=== PATIENT | male | born 1925 | race Caucasian/White ===

== ENCOUNTER 2017-03-31 10:03 | Inpatient (IN) ==
[2017-03-31] MEDS ORDERED: IPRATROPIUM/ALBUTEROL 3 ML AMPUL.NEB NEB ONE ×2 (10:28)
--- NOTE | 2017-03-31 10:48 | XRay Report ---
CLINICAL INFORMATION: Dyspnea COMPARISON: None. FINDINGS: The heart is minimally enlarged. Mediastinum and pulmonary vessels are normal. Small bibasilar infiltrates noted more prominent on the left IMPRESSION: Small right basilar infiltrates - more prominent in the left. Consider aspiration Interpreted and Authenticated by: Zak Arreola 03/31/17
[2017-03-31 11:10] LABS: Basophils # (Auto) 0 K/mcL (0.0-0.3); Basophils % (Auto) 0.4 % (0.0-2.0); Eosinophils # (Auto) 0.4 K/mcL (0.0-0.7); Eosinophils % (Auto) 4.9 % (0.0-7.0); Granulocytes % (Auto) 74.7 % (38.0-78.0); Lymphocytes # (Auto) 1.1 K/mcL (1.5-4.8); Lymphocytes % (Auto) 12.2 % (15.5-49.0); Mean Cell Volume 84.9 fL (80.0-100.0); Mean Corpuscular HGB Conc 33.6 g/dL (31.0-36.0); Mean Corpuscular Hemoglobin 28.5 pg (26.0-34.0); Monocytes # (Auto) 0.7 K/mcL (0.1-0.9); Monocytes % (Auto) 7.8 % (1.0-12.0); Platelet Count 256 K/mcL (140-440); RBC 4.16 M/mcL (4.50-5.90); Red Cell Distribution Width 14.8 % (11.5-14.5)
[2017-03-31] MEDS ORDERED: AZITHROMYCIN 500 MG in DEXTROSE 5% IN WATER 250 ML IV ONE (11:10)
[2017-03-31 11:33] LABS: ALT/SGPT 9 U/l (0-40); Albumin 3.9 gm/dL (3.2-5.2); Albumin/Globulin Ratio 1.2 (1.0-2.3); Alkaline Phosphatase 67 U/L (39-117); Blood Urea Nitrogen 17 mg/dl (8-23)
--- NOTE | 2017-03-31 11:49 | Emergency Department Note ---
SOB HPI - General Chief Complaint: Shortness of Breath/Dyspnea Stated Complaint: Sob/cough Time Seen by Provider: 03/31/17 10:17 Source: patient Mode of arrival: ambulatory Limitations: no limitations - History of Present Illness Old male presents with shortness of breath, cough, and wheezing for the last week. Much worse the last few days. States cough is nonproductive. States he has had a fever of up to 103 at home. He is afebrile here today. He believes his last fever was last night. No nausea or vomiting. No diarrhea. He does have a little bit of generalized weakness and he states he just does not feel well. His shortness of breath is worse with exertion even just getting up and walking around. Denies any pedal edema. States he just feels like he has a lot of stuff in his lungs that he cannot get up and therefore cannot breathe. No ear pain or sore throat. No runny nose or nasal congestion. No sinus pressure congestion. Slightly decreased appetite but is still eating and drinking well. Associated symptoms: Denies: lower extremity pain, diaphoresis, nausea/vomiting , syncope, abdominal pain - Related Data Home Medications Medication Instructions Recorded Confirmed Fluticasone Propionate [Flovent 250 mcg IH DAILY 09/26/15 01/12/16 Diskus] Ginseng [Panax Ginseng] 100 mg PO DAILY 09/26/15 01/12/16 Ipratropium/Albuterol Sulfate 1 puff INH DAILY 09/26/15 01/12/16 [Combivent] Ipratropium/Albuterol [Duoneb] 3 ml NEB BID 09/26/15 01/12/16 Omeprazole [PriLOSEC] 20 mg PO ACB 09/26/15 01/12/16 Saw [place] 80 mg PO DAILY 09/26/15 01/12/16 Tamsulosin [Flomax] 0.4 mg PO HS 09/26/15 01/12/16 metFORMIN [Glucophage] 500 mg PO BIDCC 09/26/15 01/12/16 Aspirin 08/07/16 Allergies Allergy/AdvReac Type Severity Reaction Status Date / Time Sulfa (Sulfonamide Allergy Severe Verified 08/07/16 12:33 Antibiotics) [SULFA (SULFONAMIDE ANTIBIOTICS)] Review of Systems All systems ED: reviewed and negative except as stated. Past Medical History - Past Medical History [facility] Narrative: Medical History (Last Updated 11/26/16 @ 14:07 by Categorical SD) Benign paroxysmal positional vertigo (Acute) Ecchymosis (Acute) Viral URI with cough (Acute) Medical history: Reports: arthritis, COPD, diabetes, other (benign positional vertigo) Surgical history ED: Reports: non-contributory - Social History smoking status: Former smoker Alcohol use: Reports: None Drug use: Reports: none Physical Exam - General Limitations: no limitations General appearance: alert, in no apparent distress - Head Head exam: atraumatic, normocephalic, normal inspection - Eye Eye exam: Present: normal appearance. Absent: conjunctival injection - ENT ENT exam: normal exam, normal oropharynx, mucous membranes moist, TM's normal bilaterally, normal external ear exam - Neck Neck exam: Present: normal inspection, trachea midline. Absent: tenderness, lymphadenopathy - Chest Chest inspection: Present: normal inspection, symmetric chest wall rise - Respiratory Respiratory exam: Present: wheezes (Lung sounds diminished in the bases bilaterally with expiratory wheezing bilaterally.), other (Patient does have labored breathing with any exertion, even walking around the room. Oxygen saturations while sitting and resting are 88-89% on room air. ). Absent: respiratory distress, accessory muscle use - Cardiovascular Cardiovascular exam: Present: regular rate, normal rhythm, normal heart sounds - Abdominal Exam Abdominal exam: Present: soft, normal bowel sounds. Absent: distention, tenderness - Extremities Exam Extremities exam: Present: normal inspection, normal capillary refill. Absent: pedal edema - Neurological Exam Neurological exam: Present: alert, oriented X3, normal gait - Psychiatric Psychiatric exam: Present: normal affect, normal mood - Skin Skin exam: Present: warm, dry, intact, normal color. Absent: rash, cyanosis, diaphoresis, erythema Course Course Narrative: This patient get up and walk around a little bit in the room and his oxygen saturations on room air dropped to 82-84% with very little exertion. He states he is a little short of breath but not bad. He has been much more short of breath at home. Patient does have bilateral infiltrates. He is hypoxic on room air and with exertion. I did speak with Dr. Velasquez the hospitalist who agrees to admit and care for patient. He did receive 500 mg of IV Zithromax. Lactic acid was 1.2. Blood culture pending. please see lab results. Vital Signs Temperature 97.7 F 03/31/17 10:04 Pulse Rate 65 03/31/17 10:04 Respiratory Rate 20 03/31/17 10:04 Blood Pressure 133/64 03/31/17 10:04 Pulse Oximetry (%) 93 03/31/17 10:04 Temperature 97.7 F 03/31/17 10:04 Pulse Rate 59 L 03/31/17 11:31 Respiratory Rate 12 03/31/17 11:31 Blood Pressure 121/68 03/31/17 11:31 Pulse Oximetry (%) 91 03/31/17 11:31 Shortness of Breath/Dyspnea - Lab Data Result diagrams: 03/31/17 10:40 03/31/17 10:40 Lab Results 03/31/17 03/31/17 03/31/17 Range/Units 10:40 10:40 10:40 WBC 9.1 (4.5-11.0) K/mcL RBC 4.16 L (4.50-5.90) M/mcL Hgb 11.9 L (13.5-16.5) g/dL Hct 35.3 L (41.0-55.0) % MCV 84.9 (80.0-100.0) fL MCH 28.5 (26.0-34.0) pg MCHC 33.6 (31.0-36.0) g/dL RDW 14.8 H (11.5-14.5) % Plt Count 256 (140-440) K/mcL MPV 7.5 (7.4-10.4) fL Gran % 74.7 (38.0-78.0) % Lymph % (Auto) 12.2 L (15.5-49.0) % [place] % (Auto) 7.8 (1.0-12.0) % Eos % (Auto) 4.9 (0.0-7.0) % Baso % (Auto) 0.4 (0.0-2.0) % Gran # 6.8 (1.8-8.0) K/mcL Lymph # (Auto) 1.1 L (1.5-4.8) K/mcL [place] # (Auto) 0.7 (0.1-0.9) K/mcL Eos # (Auto) 0.4 (0.0-0.7) K/mcL Baso # (Auto) 0 (0.0-0.3) K/mcL D-Dimer 0.50 H (0.00-0.40) ug/ml VBG Lactic Acid (0.5-2.2) mmol/L Sodium 138 (133-145) mmol/L Potassium 4.4 (3.3-5.1) mmol/L Chloride 102 (96-108) mmol/L Carbon Dioxide 20 L (22-30) mmol/L Anion Gap 16.0 (8-16) BUN 17 (8-23) mg/dl Creatinine 1.2 (0.7-1.2) mg/dl GFR Calculation 53 Glucose 154 H (70-105) mg/dL Calcium 9.0 (8.6-10.4) mg/dl Total Bilirubin 0.4 (0.0-1.0) mg/dL AST 8 (0-37) U/l ALT 9 (0-40) U/l Alkaline Phosphatase 67 (39-117) U/L Troponin T (0-0.03) ng/ml Total Protein 7.1 (5.9-8.4) gm/dL Albumin 3.9 (3.2-5.2) gm/dL Globulin 3.2 (2.2-3.7) gm/dL Albumin/Globulin Ratio 1.2 (1.0-2.3) 03/31/17 03/31/17 Range/Units 10:40 11:15 WBC (4.5-11.0) K/mcL RBC (4.50-5.90) M/mcL Hgb (13.5-16.5) g/dL Hct (41.0-55.0) % MCV (80.0-100.0) fL MCH (26.0-34.0) pg MCHC (31.0-36.0) g/dL RDW (11.5-14.5) % Plt Count (140-440) K/mcL MPV (7.4-10.4) fL Gran % (38.0-78.0) % Lymph % (Auto) (15.5-49.0) % [place] % (Auto) (1.0-12.0) % Eos % (Auto) (0.0-7.0) % Baso % (Auto) (0.0-2.0) % Gran # (1.8-8.0) K/mcL Lymph # (Auto) (1.5-4.8) K/mcL [place] # (Auto) (0.1-0.9) K/mcL Eos # (Auto) (0.0-0.7) K/mcL Baso # (Auto) (0.0-0.3) K/mcL D-Dimer (0.00-0.40) ug/ml VBG Lactic Acid 1.2 (0.5-2.2) mmol/L Sodium (133-145) mmol/L Potassium (3.3-5.1) mmol/L Chloride (96-108) mmol/L Carbon Dioxide (22-30) mmol/L Anion Gap (8-16) BUN (8-23) mg/dl Creatinine (0.7-1.2) mg/dl GFR Calculation Glucose (70-105) mg/dL Calcium (8.6-10.4) mg/dl Total Bilirubin (0.0-1.0) mg/dL AST (0-37) U/l ALT (0-40) U/l Alkaline Phosphatase (39-117) U/L Troponin T < 0.01 (0-0.03) ng/ml Total Protein (5.9-8.4) gm/dL Albumin (3.2-5.2) gm/dL Globulin (2.2-3.7) gm/dL Albumin/Globulin Ratio (1.0-2.3) Disposition Pt seen by CORRECTIONAL MAINTENANCE TECHNICIAN/PA only: Yes Clinical Impression: Pneumonia Disposition: Xfer As Inpt ([facility]) Condition: Fair Referrals: Yahaira Oconnor MD [Primary Care Provider] - Time of Disposition: 12:19
--- NOTE | 2017-03-31 13:08 | Emergency Department Note ---
ED Note Addendum Note Addendum: I have exaqmioned the patient and reviewed xrays and lab and agree with dx and rx and admission
[2017-03-31] MEDS ORDERED: NALOXONE HCL 0.4 MG/ML VIAL IV PRN (14:31)
[2017-03-31] MEDS ORDERED: ONDANSETRON 4 MG/2 ML VIAL IV PRN (14:31)
[2017-03-31] MEDS ORDERED: CALCIUM CARBONATE 500 MG TAB.CHEW CHEWED PRN (14:31)
[2017-03-31] MEDS ORDERED: DOCUSATE SODIUM 100 MG CAPSULE PO PRN (14:31)
[2017-03-31] MEDS ORDERED: ALBUTEROL SULFATE 2.5 MG/3 ML NEBULIZER NEB PRN (14:31)
[2017-03-31] MEDS ORDERED: DEXTROSE 31 GM ORAL.SUSP PO PRN (14:31)
[2017-03-31] MEDS ORDERED: DEXTROSE 50% 50 ML VIAL IV PRN (14:31)
[2017-03-31] MEDS ORDERED: MAGNESIUM HYDROXIDE 30 ML ORAL.SUSP PO PRN (14:31)
[2017-03-31] MEDS ORDERED: ACETAMINOPHEN 325 MG TABLET PO PRN (14:31)
[2017-03-31] MEDS: IPRATROPIUM/ALBUTEROL 3 ML AMPUL.NEB NEB SCH ×2 (14:43→18:45)
--- NOTE | 2017-03-31 15:00 | Internal Med History&Physical ---
Medical - H&P: HPI Patient information: Note initiated : 03/31/17 at 2:57 pm Patient: Zak Perez 89 y/o M admitted on 03/31/17 for SOB/Cough. History of present illness: Mr. Perez is a 89 year old who lives with his daughter. He generally is pretty functional and was in his normal state of health until about 8 days ago, when he developed fever as high as 103, cough and increased shortness of breath, wheezing, and generalized weakness. He has nebulized medication use at home as well as inhalers, so was trying to use those. He has had some minor chills. He is also noticing not only dyspnea with exertion but also some orthopnea, runny nose, nonproductive cough. He has had some episodes of chest pain mainly with coughing, across his lower chest. He is also had migraines the last couple of days, which are generally quite infrequent for him. He otherwise denies new eye or ear symptoms, sinus symptoms, sore throat. He denies swollen glands, other chest pain or palpitations. He denies abdominal pain, nausea or vomiting, diarrhea or constipation, or change in his chronic BPH symptoms. ER evaluation suggests bilateral lower lobe pneumonia, with room air O2 saturations as low as 84%. He did drive himself here today rather than bother his daughter. Past medical history: COPD [place] type 2 diabetes BPH [place] benign positional vertigo Migraines GERD Current medications: Metformin 500 mg twice daily Zinc 50 mg twice daily Flomax 0.4 mg nightly Saw palmetto 80 mg daily Omeprazole 40 mg twice daily Duo nebs twice daily as needed Combivent 1 puff 4 times daily as needed Ginseng 2 tabs daily Aspirin 81 mg daily Allergies: Sulfa Family history: He reports his mother of old age. Father possibly with asthma. Siblings have had some type of GI cancer and diabetes. Social history: Smokes cigarettes around age [age]. He then switched to cigars and smokes cigars for about 40 years, but quit more than 10 years ago. He drinks 2 alcohol-containing drinks per day, either wine or whiskey. He does not use drugs. He lives with his daughter in [place]. Medical - H&P: Meds Home Medications Medication Instructions Recorded Confirmed Type Ginseng [Panax Ginseng] 2 tab PO DAILY 09/26/15 03/31/17 History Ipratropium/Albuterol Sulfate 1 puff INH PRN PRN 09/26/15 03/31/17 History [Combivent] Saw [place] 80 mg PO DAILY 09/26/15 03/31/17 History Tamsulosin [Flomax] 0.4 mg PO HS 09/26/15 03/31/17 History metFORMIN [Glucophage] 500 mg PO BIDCC 09/26/15 03/31/17 History Aspirin 81 mg PO HS 08/07/16 03/31/17 History Omeprazole [Prilosec] 40 mg PO BID 03/31/17 03/31/17 History Zinc 50 mg PO BID 03/31/17 03/31/17 History Accu-Chek 1 each FS ACHS strip 04/03/17 Rx Acetaminophen [Tylenol] 650 mg PO Q6HP PRN tablet 04/03/17 Rx Albuterol Sulfate [Ventolin] 2.5 mg NEB Q2HP PRN #30 04/03/17 Rx Amoxicillin/Potassium Clav 875 mg PO Q12H #10 tablet 04/03/17 Rx [Augmentin] Ipratropium/Albuterol [Duoneb] 3 ml NEB TID #30 04/03/17 Rx predniSONE [Prednisone] 40 mg PO QAMCC #5 tablet 04/03/17 Rx Allergies Allergy/AdvReac Type Severity Reaction Status Date / Time Sulfa (Sulfonamide Allergy Severe Verified 03/31/17 14:27 Antibiotics) [SULFA (SULFONAMIDE ANTIBIOTICS)] Medical - H&P: Exam - Constitutional Vitals: Temp Pulse Resp BP Pulse Ox 98 F 65 20 121/53 92 03/31/17 13:55 03/31/17 14:43 03/31/17 14:43 03/31/17 13:55 03/31/17 14:45 The patient is an elderly man, sitting on the side of his bed. He has a congested cough, but is not in severe distress at this time. Head is normocephalic, atraumatic. Eyes: PERRLA, EOMI, anicteric. Ears: TMs and canals are clear. Pharynx: Pharynx is clear. Teeth are in good repair. Mucosa appears normal. Neck: Is supple, without obvious lymphadenopathy, JVD, thyromegaly, bruits. Cardiac exam shows regular rate and rhythm with normal S1 and S2 without murmurs rubs or gallops Lungs: Breath sounds are very coarse throughout, with scattered rhonchi and wheezes, but no definite crackles. I do not believe he is using accessory muscles at this time. Abdomen is soft and nontender with no obvious masses. Bowel sounds are active. Extremities: Show no cyanosis, clubbing, edema. Neurologic exam: Patient is alert and oriented, calm and cooperative. Motor exam is grossly nonfocal. Medical - H&P: Reslt - Labs CBC & Chem 7: 04/03/17 04:54 04/03/17 04:54 Labs: D-dimer is elevated at 0.50 next Lactic acid is normal at 1.2 Troponin T is normal at less than 0.01 agraffe chest x-ray: Shows small basilar infiltrates, more prominent on the left. EKG shows normal sinus rhythm at a rate of about 60. No acute ischemic changes are noted. Next Chest x-ray shows small bibasilar infiltrates, more prominent on the left side. Consider aspiration. Medical - H&P: A/P (1) Type 2 diabetes mellitus Current visit: Yes Status: Acute (2) BPH (benign prostatic hyperplasia) Current visit: Yes Status: Acute (3) GERD (gastroesophageal reflux disease) Current visit: Yes Status: Acute (4) Pneumonia Current visit: Yes Status: Acute - Narrative A/P Narrative: #1. Pulmonary/infectious disease. Patient presents with signs and symptoms consistent with possible aspiration pneumonia, in addition to COPD exacerbation. He is not doing well with outpatient management, and is now admitted for more intensive care. -Cover with IV Zosyn -Blood and sputum cultures. -Manage fever with Tylenol -Oxygen, scheduled duo nebs, as needed albuterol nebs, pulmonary toilet. -Speech therapy evaluation regarding possible aspiration. -Replace Flovent with budesonide nebs. 2. Endocrine. Type 2 diabetes. Cover with sliding scale insulin, Accu-Cheks. Hold Metformin until we are sure he is not dehydrated. 3. . History of BPH. Continue Flomax. 4. GI. GERD. Continue omeprazole. 5. CODE STATUS: He says he does not have anything in writing, and it sounds like he would like to be a full code initially, but would not want long-term life support. He would like his daughter, Latonya Perez, to act as his POA. 6. DVT prophylaxis: Subcu heparin. This visit took approximately 55 minutes, to review the patient's case with the ER MD, interview and examine the patient, review his records and test results, and write orders. Medical - H&P: Qual - VTE Deep Vein Thrombosis/Pulmonary Embolism Present on Admission: No
[2017-03-31] MEDS: PIPERACILLIN SODIUM/TAZOBACTAM 3.375 GM in DEXTROSE 5% IN WATER 50 ML IV SCH ×2 (15:59→20:10)
[2017-03-31] MEDS: POTASSIUM CHLORIDE IV SCH (16:00)
[2017-03-31] MEDS: 0.9 % SODIUM CHLORIDE 10 ML SYRINGE IV SCH ×2 (16:00→20:10)
[2017-03-31] MEDS: SODIUM CHLORIDE 0.9% IV SCH (16:00)
[2017-03-31] MEDS: INSULIN LISPRO 1 UNIT/0.01 ML UNIT SQ SCH ×2 (16:33→20:10)
[2017-03-31] MEDS: HEPARIN 5,000 UNIT/ML VIAL SQ SCH (20:10)
[2017-04-01] MEDS: PIPERACILLIN SODIUM/TAZOBACTAM 3.375 GM in DEXTROSE 5% IN WATER 50 ML IV SCH ×4 (00:05→18:10)
--- NOTE | 2017-04-01 02:03 | Emergency Department Note ---
ED Note Addendum Note Addendum: PT EXAMINED WITH Jayy AND AGREE WITH TREATMENT AND DX. hOSPITALIST CONTACTED
[2017-04-01] MEDS: IPRATROPIUM/ALBUTEROL 3 ML AMPUL.NEB NEB SCH ×4 (03:12→19:39)
[2017-04-01] MEDS: SODIUM CHLORIDE 0.9% IV SCH ×3 (04:18→17:18)
[2017-04-01] MEDS: POTASSIUM CHLORIDE IV SCH ×3 (04:18→17:18)
[2017-04-01] MEDS: 0.9 % SODIUM CHLORIDE 10 ML SYRINGE IV SCH ×3 (05:10→21:19)
[2017-04-01 06:06] LABS: Basophils # (Auto) 0 K/mcL (0.0-0.3); Basophils % (Auto) 0.4 % (0.0-2.0); Eosinophils # (Auto) 0.5 K/mcL (0.0-0.7); Eosinophils % (Auto) 6.4 % (0.0-7.0); Granulocytes % (Auto) 66.1 % (38.0-78.0); Lymphocytes # (Auto) 1.4 K/mcL (1.5-4.8); Lymphocytes % (Auto) 19.7 % (15.5-49.0); Mean Cell Volume 85.3 fL (80.0-100.0); Mean Corpuscular HGB Conc 33.4 g/dL (31.0-36.0); Mean Corpuscular Hemoglobin 28.5 pg (26.0-34.0); Monocytes # (Auto) 0.5 K/mcL (0.1-0.9); Monocytes % (Auto) 7.4 % (1.0-12.0); Platelet Count 251 K/mcL (140-440); RBC 3.85 M/mcL (4.50-5.90)
[2017-04-01 06:22] LABS: Estimated Average Glucose(eAG) 140 mg/dL; Hemoglobin A1C 6.5 % HGB (4.0-6.0)
[2017-04-01 06:31] LABS: ALT/SGPT 8 U/l (0-40); Albumin 3.5 gm/dL (3.2-5.2); Albumin/Globulin Ratio 1.2 (1.0-2.3); Alkaline Phosphatase 63 U/L (39-117); Bilirubin,Direct < 0.2 mg/dL (0.0-0.3); Blood Urea Nitrogen 16 mg/dl (8-23); Gamma Glutamyl Transpeptidase 11 U/L (8-61); Magnesium 1.8 mg/dL (1.6-2.5); Uric Acid 4.6 mg/dL (2.5-8.0)
[2017-04-01] MEDS: INSULIN LISPRO 1 UNIT/0.01 ML UNIT SQ SCH ×4 (07:19→21:13)
[2017-04-01] MEDS: OMEPRAZOLE 20 MG CAPSULE PO SCH ×2 (07:19→17:08)
--- NOTE | 2017-04-01 08:00 | XRay Report ---
CLINICAL INFORMATION: Follow pneumonia COMPARISON: 03/31/2017 FINDINGS: The heart is minimally enlarged, but stable. Mediastinum and pulmonary vessels are normal. Small infiltrates in both medial bases show slight progression. No effusion IMPRESSION: Small bibasilar infiltrates - slight progression from yesterday. Interpreted and Authenticated by: Zak Arreola 04/01/17
[2017-04-01] MEDS: metFORMIN 500 MG TABLET PO SCH ×2 (08:23→17:08)
[2017-04-01] MEDS: HEPARIN 5,000 UNIT/ML VIAL SQ SCH ×2 (08:23→21:22)
--- NOTE | 2017-04-01 11:37 | Internal Med Progress Note ---
Medical - PN: Subj Patient information: Note initiated : 04/01/17 at 11:34 am Service Date, if different from initiated Date: [] Patient: Zak Perez a 89 y/o M admitted on 03/31/17 for SOB, Cough/Pneumonia. Chief Complaint: [] Interval history: Mr. Perez is a 89 year old who lives with his daughter. He generally is pretty functional and was in his normal state of health until about 8 days ago, when he developed fever as high as 103, cough and increased shortness of breath, wheezing, and generalized weakness. He has nebulized medication use at home as well as inhalers, so was trying to use those. He has had some minor chills. He is also noticing not only dyspnea with exertion but also some orthopnea, runny nose, nonproductive cough. He has had some episodes of chest pain mainly with coughing, across his lower chest. He is also had migraines the last couple of days, which are generally quite infrequent for him. He otherwise denies new eye or ear symptoms, sinus symptoms, sore throat. He denies swollen glands, other chest pain or palpitations. He denies abdominal pain, nausea or vomiting, diarrhea or constipation, or change in his chronic BPH symptoms. ER evaluation suggests bilateral lower lobe pneumonia, with room air O2 saturations as low as 84%. He did drive himself here today rather than bother his daughter. 04/01: Patient seen exained, no acute overnight events, the patients CXR today shows some progression of pna, but clinically the patient appears better. He feels much better and denies any acute complaints, he remains on 3 L oxygen via face mask. His bp is stable and glucose at goal I reviewed his Case with Speech therapy, who brought to my attention that there may be some possible stenosis/ stricture in the esophagus, the patient has h/o difficulty in swallowing d ry and solid foods for a while, notes they had tried an EGD in the past where they were unable to pass the scope below the upper esophagus. Will get a barium esophageogram today to see if there is any obvious / gross stricture. Pertinent ROS: Denies headache, dizziness Denies chest pain, palpitations Denies cough or shortness of breath (much better) Denies abdominal pain, nausea or vomiting. - Constitutional Vitals: Vital Signs Temp Pulse Resp BP Pulse Ox 97.5 F 62 20 137/69 96 04/01/17 11:10 04/01/17 11:10 04/01/17 11:10 04/01/17 11:10 04/01/17 11:10 Period Temp Pulse Resp BP Sys/Cohen Pulse Ox Last 24 Hr 97.5 F-98.2 F 60-83 12-22 117-162/53-77 88-96 Intake and Output 03/31/17 04/01/17 04/01/17 21:59 05:59 13:59 Intake Total 100 / 100 1994 240 / 240 Output Total 875 / 875 1700 / 1700 575 / 575 Balance -775 / -775 295 / 295 -335 / -335 Weight 178 lb Intake & Output: Intake & Output 03/31/17 04/01/17 04/01/17 21:59 05:59 13:59 Intake Total 100 / 100 1994 240 / 240 Output Total 875 / 875 1700 / 1700 575 / 575 Balance -775 / -775 295 / 295 -335 / -335 Weight 178 lb Intake: IV 100 / 100 1055 / 1055 Zosyn 3.375 gm In 100 / 100 50 / 50 Dextrose 5% in Water 50 ml @ 100 mls/hr IV Q6H JAZMYNE Rx#:[id number] Potassium Chloride 10 Meq 1005 / 1005 In Sodium Chloride 0.9% 1,000 ml @ 75 mls/hr IV . [id number] JAZMYNE Rx#:[id number] Oral 940 / 940 240 / 240 Output: Void Amount 875 / 875 1700 / 1700 575 / 575 Other: Meal Breakfast Percent of Meal Consumed 75% # Voids 1 1 Exam: Constitutional; Afebrile, cooperative, alert, not in distress. Eyes- No icterus, , No periorbital swelling Ears- Ext ear normal, hearing normal to conversation. Neck- Midline trachea, supple Respiratory system: Air Entry equal on both sides, No crackles or wheezing, no rhonchi. CVS- Rate rhythm regular, S1,S2 heard, no gallop, no rub. Abdomen- Soft nontender abdomen, no organomegaly, no tenderness, no guarding or rigidity, DIRECTOR OF ESTATE- AOOx3, moving all extremities, no gross focal deficit noted. Medical - PN: Obj Da - Labs CBC & Chem 7: 04/01/17 04:44 04/01/17 04:44 Labs: Abnormal Lab Results 04/01/17 04/01/17 04:44 04:44 RBC 3.85 L Hgb 11.0 L Hct 32.8 L RDW 15.0 H Lymph # (Auto) 1.4 L Glucose 117 H Hemoglobin A1c 6.5 H Meds: Medications Acetaminophen (Tylenol) 650 mg PO Q6HP PRN PRN Reason: PAIN/FEVER > 101 Albuterol Sulfate (Ventolin) 2.5 mg NEB Q2HP PRN PRN Reason: Shortness Of Breath Albuterol/Ipratropium (Duoneb) 3 ml NEB Q6HRT [facility] Last Admin: 04/01/17 07:12 Dose: 3 ml Aspirin (Aspirin) 81 mg PO HS [facility] Calcium Carbonate/Glycine (Tums) 1,000 mg CHEWED Q4HP PRN PRN Reason: Dyspepsia Dextrose (Dextrose 50%) 0 ml IV UD PRN PRN Reason: Hypoglycemia Diagnostic Test (Pha) (Accu-Chek) 1 each FS ACHS [facility] Last Admin: 04/01/17 11:13 Dose: 1 each Docusate Sodium (Colace) 100 mg PO BID PRN PRN Reason: Congestion Glucose (Insta-Glucose) 15 gm PO PRN PRN PRN Reason: Hypoglycemia Heparin Sodium (Porcine) (Heparin) 5,000 unit SQ Q12 [facility] Last Admin: 04/01/17 08:23 Dose: 5,000 unit Potassium Chloride 10 meq/ (Sodium Chloride) 1,005 mls @ 75 mls/hr IV .[id number] [facility] Last Admin: 04/01/17 07:19 Dose: 75 mls/hr Piperacillin Sod/Tazobactam (Sod 3.375 gm/ Dextrose) 50 mls @ 100 mls/hr IV Q6H [facility] Last Admin: 04/01/17 05:10 Dose: 100 mls/hr Insulin Human Lispro (Humalog) 0 unit SQ ACHS [facility] PRN Reason: Protocol Last Admin: 04/01/17 07:19 Dose: Not Given Magnesium Hydroxide (Milk Of Magnesia) 30 ml PO DAILYP PRN PRN Reason: Constipation Metformin HCl (Glucophage) 500 mg PO BIDCC [facility] Last Admin: 04/01/17 08:23 Dose: 500 mg Naloxone HCl (Narcan) 0.1 mg IV Q2MIN PRN PRN Reason: Opiate Reversal Omeprazole (Prilosec) 40 mg PO BIDAC [facility] Last Admin: 04/01/17 07:19 Dose: 40 mg Ondansetron HCl (Zofran) 4 mg IV Q6HP PRN PRN Reason: Nausea And Vomiting Sodium Chloride (Saline Flush) 10 ml IV Q8 [facility] Last Admin: 04/01/17 05:10 Dose: Not Given Tamsulosin HCl (Flomax) 0.4 mg PO [facility] Medical - PN: A/P - Time Spent With Patient Total time spent is greater than 50% in coordination of care (as documented) at patient's floor/unit and/or counseling patient: - Narrative A/P Narrative: A/P Narrative: #1. Pulmonary/infectious disease. Patient presents with signs and symptoms consistent with possible aspiration pneumonia, in addition to COPD exacerbation. -Cover with IV Zosyn -Blood and sputum cultures., results pending. -Manage fever with Tylenol -Oxygen, scheduled duo nebs, as needed albuterol nebs, pulmonary toilet. -Speech therapy evaluation regarding possible aspiration. esophageogram ordered -Replace Flovent with budesonide nebs. -prednisone 40mg daily x 5 days for copd 2. Endocrine. Type 2 diabetes. Cover with sliding scale insulin, Accu-Cheks. glucose seems to be at goal 3. . History of BPH. Continue Flomax. 4. GI. GERD. Continue omeprazole. 5. CODE STATUS: He says he does not have anything in writing, and it sounds like he would like to be a full code initially, but would not want long-term life support. He would like his daughter, Latonya Perez, to act as his POA. 6. DVT prophylaxis: Subcu heparin. Medical - PN: Qual - VTE Deep Vein Thrombosis/Pulmonary Embolism Present on Admission: No
[2017-04-01] MEDS: predniSONE 20 MG TABLET PO SCH (12:54)
[2017-04-01] MEDS: ASPIRIN 81 MG TAB.CHEW PO SCH (21:14)
[2017-04-01] MEDS: TAMSULOSIN 0.4 MG CAPSULE PO SCH (21:15)
[2017-04-02] MEDS: PIPERACILLIN SODIUM/TAZOBACTAM 3.375 GM in DEXTROSE 5% IN WATER 50 ML IV SCH ×6 (00:20→23:48)
[2017-04-02] MEDS: IPRATROPIUM/ALBUTEROL 3 ML AMPUL.NEB NEB SCH ×4 (01:13→19:45)
[2017-04-02] MEDS: 0.9 % SODIUM CHLORIDE 10 ML SYRINGE IV SCH ×3 (05:41→20:45)
[2017-04-02 06:08] LABS: Basophils # (Auto) 0 K/mcL (0.0-0.3); Basophils % (Auto) 0.2 % (0.0-2.0); Eosinophils # (Auto) 0.1 K/mcL (0.0-0.7); Eosinophils % (Auto) 0.7 % (0.0-7.0); Granulocytes % (Auto) 82.9 % (38.0-78.0); Lymphocytes # (Auto) 0.8 K/mcL (1.5-4.8); Lymphocytes % (Auto) 11.2 % (15.5-49.0); Mean Cell Volume 85.1 fL (80.0-100.0); Mean Corpuscular HGB Conc 33.5 g/dL (31.0-36.0); Mean Corpuscular Hemoglobin 28.5 pg (26.0-34.0); Monocytes # (Auto) 0.3 K/mcL (0.1-0.9); Platelet Count 261 K/mcL (140-440); RBC 3.76 M/mcL (4.50-5.90); Red Cell Distribution Width 14.8 % (11.5-14.5)
[2017-04-02 06:20] LABS: ALT/SGPT 10 U/l (0-40); Albumin 3.6 gm/dL (3.2-5.2); Albumin/Globulin Ratio 1.2 (1.0-2.3); Alkaline Phosphatase 60 U/L (39-117); Bilirubin,Direct < 0.2 mg/dL (0.0-0.3); Blood Urea Nitrogen 18 mg/dl (8-23); Gamma Glutamyl Transpeptidase 14 U/L (8-61); Magnesium 1.8 mg/dL (1.6-2.5); Uric Acid 3.4 mg/dL (2.5-8.0)
[2017-04-02] MEDS: POTASSIUM CHLORIDE IV SCH (08:10)
[2017-04-02] MEDS: INSULIN LISPRO 1 UNIT/0.01 ML UNIT SQ SCH ×4 (08:10→20:50)
[2017-04-02] MEDS: SODIUM CHLORIDE 0.9% IV SCH (08:10)
[2017-04-02] MEDS: metFORMIN 500 MG TABLET PO SCH ×2 (09:21→18:21)
[2017-04-02] MEDS: predniSONE 20 MG TABLET PO SCH (09:21)
[2017-04-02] MEDS: HEPARIN 5,000 UNIT/ML VIAL SQ SCH ×2 (09:21→20:45)
[2017-04-02] MEDS: OMEPRAZOLE 20 MG CAPSULE PO SCH ×2 (09:21→18:21)
--- NOTE | 2017-04-02 09:54 | XRay Report ---
CLINICAL INFORMATION: History of aspiration pneumonia TECHNIQUE: 5 cc of water was simethacone drops follow-up high density/high viscosity barium were ingested while deglutition was examined fluoroscopically. Spot films were obtained. FINDINGS: Tongue elevation and palate depression are normal resulting in close of the barium bolus into the pharynx. The nasopharyngeus closes normally. Pharyngeal stripping is normal. There is incomplete closure of the epiglottis allowing a small amount of descending aspiration into the laryngeal vestibule. The vocal cords close normally - no aspirated barium was witnessed below the vocal cords. There is incomplete opening of the cricopharyngeus compatible with cricopharyngeal achalasia or a short segment stricture. The primary peristaltic wave is disrupted by few tertiary contractions compatible with mild presbyesophagus. The lower esophageal sphincter opens normally. No focal lesions seen within the thoracic esophagus. Small bilateral pharyngoceles incidentally noted. IMPRESSION: 1. Small amount of descending aspiration related to incomplete epiglottis closure. There is penetration into laryngeal vestibule but no definite penetration below the vocal cords into the trachea during this exam. 2. Incompletely opening of the cricopharyngeus compatible with achalasia or short segment stricture. Patient may benefit from endoscopic dilatation 3. Mild presbyesophagus only minimally disrupts the primary peristaltic wave 4. Small bilateral pharyngoceles Interpreted and Authenticated by: Zak Arreola 04/02/17
--- NOTE | 2017-04-02 14:03 | Internal Med Progress Note ---
Medical - PN: Subj Patient information: Note initiated : 04/02/17 at 2:03 pm Patient: Zak Perez 89 y/o M admitted on 03/31/17 for SOB, Cough/Pneumonia. Interval history: March 31, 2017: History of present illness: Mr. Perez is a 89 year old who lives with his daughter. He generally is pretty functional and was in his normal state of health until about 8 days ago, when he developed fever as high as 103, cough and increased shortness of breath, wheezing, and generalized weakness. He has nebulized medication use at home as well as inhalers, so was trying to use those. He has had some minor chills. He is also noticing not only dyspnea with exertion but also some orthopnea, runny nose, nonproductive cough. He has had some episodes of chest pain mainly with coughing, across his lower chest. He is also had migraines the last couple of days, which are generally quite infrequent for him. He otherwise denies new eye or ear symptoms, sinus symptoms, sore throat. He denies swollen glands, other chest pain or palpitations. He denies abdominal pain, nausea or vomiting, diarrhea or constipation, or change in his chronic BPH symptoms. ER evaluation suggests bilateral lower lobe pneumonia, with room air O2 saturations as low as 84%. He did drive himself here today rather than bother his daughter. 04/01: Patient seen and examined, no acute overnight events, the patients CXR today shows some progression of pna, but clinically the patient appears better. He feels much better and denies any acute complaints, he remains on 3 L oxygen via face mask. His bp is stable and glucose at goal I reviewed his Case with Speech therapy, who brought to my attention that there may be some possible stenosis/ stricture in the esophagus, the patient has h/o difficulty in swallowing d ry and solid foods for a while, notes they had tried an EGD in the past where they were unable to pass the scope below the upper esophagus. Will get a barium esophageogram today to see if there is any obvious / gross stricture. April 02: Today, the patient says he is feeling better. He is feeling much less short of breath and says his coughing is also markedly decreased. He continues to deny any choking or coughing when he eats and drinks. He does report a previous history of some sort of esophageal obstruction or stricture. Otherwise, he denies fever or chills, chest pain or palpitations, significant dyspnea with exertion, abdominal pain, GI or symptoms. He says he has never needed to wear oxygen at home, but does have a home nebulizer, which he only uses occasionally. - Constitutional Vitals: Vital Signs Temp Pulse Resp BP Pulse Ox 97.5 F 65 16 156/77 96 04/02/17 12:51 04/02/17 12:51 04/02/17 12:51 04/02/17 12:51 04/02/17 12:51 Period Temp Pulse Resp BP Sys/Cohen Pulse Ox Last 24 Hr 97.5 F-98.0 F 64-77 16-24 127-164/66-78 92-96 Intake and Output 04/02/17 04/02/17 04/02/17 05:59 13:59 21:59 Intake Total 890 / 890 700 / 700 Output Total 2080 / 0 700 / 700 Balance -1190 / -1190 0 / 0 Intake & Output: Intake & Output 04/02/17 04/02/17 04/02/17 05:59 13:59 21:59 Intake Total 890 / 890 700 / 700 Output Total 0 / 0 700 / 700 Balance -1190 / -1190 0 / 0 Intake: IV 50 / 50 100 / 100 Zosyn 3.375 gm In 50 / 50 100 / 100 Dextrose 5% in Water 50 ml @ 100 mls/hr IV Q6H [facility] Rx#:[id number] Oral 840 / 840 600 / 600 Output: Void Amount 2079 / 2079 700 / 700 Other: Meal Breakfast Percent of Meal Consumed 100% Feeding Ability Independent # Voids 1 On exam, he is awake and alert, and in no acute distress. He remains afebrile. Blood pressure 140/63. O2 saturation is 93% on 2 L. Neck shows no obvious lymphadenopathy or JVD. Cardiac exam shows regular rate and rhythm. Lungs have bibasilar crackles, but otherwise no rhonchi or wheezes are noted. Abdomen is soft and nontender. Extremities show no edema. Medical - PN: Obj Da - Labs CBC & Chem 7: 04/02/17 04:31 04/02/17 04:31 Labs: Abnormal Lab Results 04/02/17 04/02/17 04/01/17 04:31 04:31 04:44 RBC 3.76 L Hgb 10.7 L Hct 32.0 L RDW 14.8 H Gran % 82.9 H Lymph % (Auto) 11.2 L Lymph # (Auto) 0.8 L Glucose 165 H 117 H Hemoglobin A1c 6.5 H 04/01/17 04:44 RBC 3.85 L Hgb 11.0 L Hct 32.8 L RDW 15.0 H Gran % Lymph % (Auto) Lymph # (Auto) 1.4 L Glucose Hemoglobin A1c April 02: Swallow: There is a small amount of descending aspiration, without definite penetration below the vocal cords. Incomplete opening of the cricopharyngeus compatible with achalasia or stricture. Mild presbyesophagus. Small bilateral pharyngoceles. March 31: Sputum culture: Showing heavy growth gram-positive bacilli. Presumptive Haemophilus species. ID to follow. Blood cultures are negative so far. D-dimer is elevated at 0.50 next Lactic acid is normal at 1.2 Troponin T is normal at less than 0.01 agraffe chest x-ray: Shows small basilar infiltrates, more prominent on the left. EKG shows normal sinus rhythm at a rate of about 60. No acute ischemic changes are noted. Meds: Medications Acetaminophen (Tylenol) 650 mg PO Q6HP PRN PRN Reason: PAIN/FEVER > 101 Albuterol Sulfate (Ventolin) 2.5 mg NEB Q2HP PRN PRN Reason: Shortness Of Breath Albuterol/Ipratropium (Duoneb) 3 ml NEB Q6HRT [facility] Last Admin: 04/02/17 07:27 Dose: 3 ml Aspirin (Aspirin) 81 mg PO HS [facility] Last Admin: 04/01/17 21:14 Dose: 81 mg Calcium Carbonate/Glycine (Tums) 1,000 mg CHEWED Q4HP PRN PRN Reason: Dyspepsia Dextrose (Dextrose 50%) 0 ml IV UD PRN PRN Reason: Hypoglycemia Diagnostic Test (Pha) (Accu-Chek) 1 each FS ACHS [facility] Last Admin: 04/02/17 12:42 Dose: 1 each Docusate Sodium (Colace) 100 mg PO BID PRN PRN Reason: Congestion Glucose (Insta-Glucose) 15 gm PO PRN PRN PRN Reason: Hypoglycemia Heparin Sodium (Porcine) (Heparin) 5,000 unit SQ Q12 [facility] Last Admin: 04/02/17 09:21 Dose: 5,000 unit Potassium Chloride 10 meq/ (Sodium Chloride) 1,005 mls @ 75 mls/hr IV .[id number] [facility] Last Admin: 04/02/17 08:10 Dose: Not Given Piperacillin Sod/Tazobactam (Sod 3.375 gm/ Dextrose) 50 mls @ 100 mls/hr IV Q6H [facility] Last Infusion: 04/02/17 12:20 Dose: Infused Insulin Human Lispro (Humalog) 0 unit SQ ACHS [facility] PRN Reason: Protocol Last Admin: 04/02/17 12:43 Dose: Not Given Magnesium Hydroxide (Milk Of Magnesia) 30 ml PO DAILYP PRN PRN Reason: Constipation Metformin HCl (Glucophage) 500 mg PO BIDCC [facility] Last Admin: 04/02/17 09:21 Dose: 500 mg Naloxone HCl (Narcan) 0.1 mg IV Q2MIN PRN PRN Reason: Opiate Reversal Omeprazole (Prilosec) 40 mg PO BIDAC [facility] Last Admin: 04/02/17 09:21 Dose: 40 mg Ondansetron HCl (Zofran) 4 mg IV Q6HP PRN PRN Reason: Nausea And Vomiting Prednisone (Prednisone) 40 [facility] Stop: 04/05/17 08:01 Last Admin: 04/02/17 09:21 Dose: 40 mg Sodium Chloride (Saline Flush) 10 ml IV Q8 [facility] Last Admin: 04/02/17 05:41 Dose: 10 ml Tamsulosin HCl (Flomax) 0.4 mg PO HS [facility] Last Admin: 04/01/17 21:15 Dose: 0.4 mg Medical - PN: A/P - Time Spent With Patient Total time spent is greater than 50% in coordination of care (as documented) at patient's floor/unit and/or counseling patient: (1) Type 2 diabetes mellitus Status: Acute Current Visit: Yes (2) BPH (benign prostatic hyperplasia) Status: Acute Current Visit: Yes (3) GERD (gastroesophageal reflux disease) Status: Acute Current Visit: Yes (4) Pneumonia Status: Acute Current Visit: Yes - Narrative A/P Narrative: A/P Narrative: #1. Pulmonary/infectious disease. Patient presents with signs and symptoms consistent with possible aspiration pneumonia, in addition to COPD exacerbation. -Covered with IV Zosyn . Preliminary sputum culture growing Haemophilus species. ID to follow. Patient is showing good clinical improvement. Hopefully, we can consider discharging him back to home tomorrow. Barium swallow is indicative of possible esophageal stricture. Speech therapy says he is safe to swallow with safe swallowing techniques, on a regular diet. We will consider having him follow-up with GI as an outpatient. -Blood results pending. -Manage fever with Tylenol -Oxygen, scheduled duo nebs, as needed albuterol nebs, pulmonary toilet. -Replace Flovent with budesonide nebs. -prednisone 40mg daily x 5 days for copd 2. Endocrine. Type 2 diabetes. Cover with sliding scale insulin, Accu-Cheks. Accu-Cheks ranging from 140-220. 3. . History of BPH. Continue Flomax. 4. GI. GERD. Continue omeprazole. -Possible esophageal stricture versus achalasia. Refer to GI. 5. CODE STATUS: He says he does not have anything in writing, and it sounds like he would like to be a full code initially, but would not want long-term life support. He would like his daughter, Latonya Perez, to act as his POA. 6. DVT prophylaxis: Subcu heparin. Medical - PN: Qual - VTE Deep Vein Thrombosis/Pulmonary Embolism Present on Admission: No
[2017-04-02] MEDS: TAMSULOSIN 0.4 MG CAPSULE PO SCH (20:44)
[2017-04-02] MEDS: ASPIRIN 81 MG TAB.CHEW PO SCH (20:45)
[2017-04-03] MEDS: IPRATROPIUM/ALBUTEROL 3 ML AMPUL.NEB NEB SCH ×2 (01:13→07:32)
[2017-04-03] MEDS: PIPERACILLIN SODIUM/TAZOBACTAM 3.375 GM in DEXTROSE 5% IN WATER 50 ML IV SCH (05:04)
[2017-04-03] MEDS: SODIUM CHLORIDE 0.9% IV SCH (05:17)
[2017-04-03] MEDS: POTASSIUM CHLORIDE IV SCH (05:17)
[2017-04-03] MEDS: 0.9 % SODIUM CHLORIDE 10 ML SYRINGE IV SCH (05:18)
[2017-04-03 06:32] LABS: Basophils # (Auto) 0 K/mcL (0.0-0.3); Basophils % (Auto) 0.1 % (0.0-2.0); Eosinophils # (Auto) 0.1 K/mcL (0.0-0.7); Eosinophils % (Auto) 0.9 % (0.0-7.0); Granulocytes % (Auto) 81.8 % (38.0-78.0); Lymphocytes # (Auto) 0.9 K/mcL (1.5-4.8); Lymphocytes % (Auto) 11.1 % (15.5-49.0); Mean Cell Volume 84.6 fL (80.0-100.0); Mean Corpuscular HGB Conc 33.9 g/dL (31.0-36.0); Mean Corpuscular Hemoglobin 28.7 pg (26.0-34.0); Monocytes # (Auto) 0.5 K/mcL (0.1-0.9); Monocytes % (Auto) 6.1 % (1.0-12.0); Platelet Count 286 K/mcL (140-440); RBC 3.76 M/mcL (4.50-5.90); Red Cell Distribution Width 14.7 % (11.5-14.5)
[2017-04-03 07:29] LABS: ALT/SGPT 13 U/l (0-40); Albumin 3.7 gm/dL (3.2-5.2); Albumin/Globulin Ratio 1.3 (1.0-2.3); Alkaline Phosphatase 56 U/L (39-117); Bilirubin,Direct < 0.2 mg/dL (0.0-0.3); Blood Urea Nitrogen 20 mg/dl (8-23); Gamma Glutamyl Transpeptidase 13 U/L (8-61); Magnesium 1.9 mg/dL (1.6-2.5); Uric Acid 2.6 mg/dL (2.5-8.0)
[2017-04-03] MEDS: INSULIN LISPRO 1 UNIT/0.01 ML UNIT SQ SCH ×2 (08:33→12:29)
[2017-04-03] MEDS: OMEPRAZOLE 20 MG CAPSULE PO SCH (08:33)
[2017-04-03] MEDS: metFORMIN 500 MG TABLET PO SCH (10:00)
[2017-04-03] MEDS: HEPARIN 5,000 UNIT/ML VIAL SQ SCH (10:02)
[2017-04-03] MEDS: predniSONE 20 MG TABLET PO SCH (10:02)
--- NOTE | 2017-04-03 12:53 | Discharge Summary ---
Medical - DS: Prov Patient information: Note initiated : 04/03/17 at 12:44 pm Service Date, if different from initiated Date: [] Patient: Zak Perez 89 y/o M admitted on 03/31/17 for SOB, Cough/Pneumonia. Chief Complaint: [] Date of admission: 03/31/17 13:39 Discharge date: 04/03/17 Primary care physician: Yahaira Oconnor Admitting clinician: Beatriz Christiansen Attending physician on discharge: Beatriz Christiansen Medical - DS: Meds - Discharge Medications Prescriptions: Albuterol Sulfate [Ventolin] 2.5 mg NEB Q2HP PRN #30 PRN Reason: Shortness Of Breath Amoxicillin/Potassium Clav [Augmentin] 875 mg PO Q12H #10 tablet Ipratropium/Albuterol [Duoneb] 3 ml NEB TID #30 predniSONE [Prednisone] 40 mg PO QAMCC #5 tablet Active and Home Medications: Discharge medications: Augmentin 875 mg p.o. twice daily for 5 more days Prednisone 40 mg daily for 4 more days Duo nebs 3 times daily, for 5-7 days, then as needed Albuterol nebs every 2 hours as needed increased shortness of breath or wheezing Tylenol 650 mg every 6 hours as needed Aspirin 81 mg daily Tums 2 tabs every 4 hours as needed dysphasia Metformin 500 mg p.o. twice daily with meals Prilosec/omeprazole 40 mg p.o. twice daily Flomax 0.4 mg p.o. nightly Chaffee zinc 50 mg p.o. twice daily Saw palmetto 80 mg daily Ginseng 2 tabs daily Combivent 1 puff 4 times daily as needed. Patient should probably go on this as a scheduled dose, once he is finished with the current DuoNeb use. Previous home Medications: Ginseng [Panax Ginseng] 2 tab PO DAILY 09/26/15 [History Confirmed 03/31/17 Last Taken 03/31/17] Ipratropium/Albuterol Sulfate [Combivent] 1 puff INH PRN PRN 09/26/15 [History Confirmed 03/31/17 Last Taken 03/30/17] Ipratropium/Albuterol [Duoneb] 3 ml NEB BID 09/26/15 [History Confirmed Last Taken 03/31/17] Saw [place] 80 mg PO DAILY 09/26/15 [History Confirmed 03/31/17 Last Taken ] Tamsulosin [Flomax] 0.4 mg PO HS 09/26/15 [History Confirmed 03/31/17 Last Taken 03/30/17] metFORMIN [Glucophage] 500 mg PO BIDCC 09/26/15 [History Confirmed 03/31/17 Last Taken 03/31/17] Aspirin 81 mg PO HS 08/07/16 [History Confirmed 03/31/17 Last Taken 03/30/17] Omeprazole [Prilosec] 40 mg PO BID 03/31/17 [History Confirmed 03/31/17 Last Taken 03/31/17] Zinc 50 mg PO BID 03/31/17 [History Confirmed 03/31/17 Last Taken 03/31/17] Medical - DS: [facility] course: Mr. Perez is a 89 year old M March 31, 2017: History of present illness: Mr. Perez is a 89 year old who lives with his daughter. He generally is pretty functional and was in his normal state of health until about 8 days ago, when he developed fever as high as 103, cough and increased shortness of breath, wheezing, and generalized weakness. He has nebulized medication use at home as well as inhalers, so was trying to use those. He has had some minor chills. He is also noticing not only dyspnea with exertion but also some orthopnea, runny nose, nonproductive cough. He has had some episodes of chest pain mainly with coughing, across his lower chest. He is also had migraines the last couple of days, which are generally quite infrequent for him. He otherwise denies new eye or ear symptoms, sinus symptoms, sore throat. He denies swollen glands, other chest pain or palpitations. He denies abdominal pain, nausea or vomiting, diarrhea or constipation, or change in his chronic BPH symptoms. ER evaluation suggests bilateral lower lobe pneumonia, with room air O2 saturations as low as 84%. He did drive himself here today rather than bother his daughter. 04/01: Patient seen and examined, no acute overnight events, the patients CXR today shows some progression of pna, but clinically the patient appears better. He feels much better and denies any acute complaints, he remains on 3 L oxygen via face mask. His bp is stable and glucose at goal I reviewed his Case with Speech therapy, who brought to my attention that there may be some possible stenosis/ stricture in the esophagus, the patient has h/o difficulty in swallowing d ry and solid foods for a while, notes they had tried an EGD in the past where they were unable to pass the scope below the upper esophagus. Will get a barium esophageogram today to see if there is any obvious / gross stricture. April 02: Today, the patient says he is feeling better. He is feeling much less short of breath and says his coughing is also markedly decreased. He continues to deny any choking or coughing when he eats and drinks. He does report a previous history of some sort of esophageal obstruction or stricture. Otherwise, he denies fever or chills, chest pain or palpitations, significant dyspnea with exertion, abdominal pain, GI or symptoms. He says he has never needed to wear oxygen at home, but does have a home nebulizer, which he only uses occasionally. April 03: Hospital course: -This patient presented to the emergency room with fever, cough, shortness of breath. He was diagnosed with bilateral lower lobe pneumonia, and room air hypoxia. He was admitted and started on treatment with IV Zosyn, to cover for possible aspiration pneumonia. He was also started on oral prednisone, as well as frequent nebulized duo nebs, and oxygen. He improved quite rapidly, and today feels much better. He actually has been up and walking out to the parking lot and back this morning, and feels he is ready to go. Yesterday he still had hypoxia with exertion, but today his O2 sats did not drop below 90% with exertion. -Because of possible aspiration pneumonia, speech therapy evaluated him. They feel that he is safe to swallow with certain safe swallowing techniques, so he will continue with those. His barium swallow test does show evidence of possible esophageal stricture, and he should probably follow-up with GI to see if anything needs to be done about that. Today, he denies fever or chills, chest pain. He has minimal dyspnea with exertion and none at rest. He denies GI or symptoms. On exam, he is awake and alert, and in no acute distress. He remains afebrile. Heart rate is 79. Respiratory rate 16. Blood pressure 134/77. O2 saturation ranges from 91-97% on room Neck shows no obvious lymphadenopathy or JVD. Cardiac exam shows regular rate and rhythm. Lungs appear clear posteriorly. He has just a little bit of a soft expiratory wheeze noted over the left anterior chest. There is no accessory muscle use. Abdomen is soft and nontender. Extremities show no edema. Neurologic exam is grossly nonfocal. Assessment and plan: #1. Pulmonary/infectious disease. Patient presents with signs and symptoms consistent with possible aspiration pneumonia, in addition to COPD exacerbation. -Covered with IV Zosyn . We will change him over to oral Augmentin today, and he should complete 5 days of that. Preliminary sputum culture growing Haemophilus species. ID to follow. -He will be sent home with instructions to use duo nebs 3 times daily plus albuterol nebs as needed. -Prednisone 40 mg p.o. daily for the next 5 days. - . -Barium swallow is indicative of possible esophageal stricture. Speech therapy says he is safe to swallow with safe swallowing techniques, on a regular diet. We will consider having him follow-up with GI as an outpatient. -Blood cultures negative so far. Patient does not require home oxygen. He was not entirely sure what inhalers he uses at home. It sounds like he is on Combivent. It is not clear if he was taking a Flovent also. This should be followed up with his primary care physician. 2. Endocrine. Type 2 diabetes. Accu-Cheks ranged from 112 -220 over the last 24 hours. Continue metformin. 3. . History of BPH. Continue Flomax. 4. GI. GERD. Continue omeprazole. -Possible esophageal stricture versus achalasia. Refer to GI. 5. CODE STATUS: He says he does not have anything in writing, and it sounds like he would like to be a full code initially, but would not want long-term life support. He would like his daughter, Latonya Perez, to act as his POA. 6. DVT prophylaxis: Subcu heparin. Discharge diagnosis: Bilateral lower lobe, aspiration, pneumonia. COPD exacerbation. Abnormal Secondary discharge diagnosis: Abnormal swallow, with abnormal barium swallow, with possible esophageal stricture. Type 2 diabetes. - Time Spent with Patient Total time spent providing and/or coordinating discharge services: Greater than 30 minutes Medical - DS: Exam - Constitutional Vitals: Vital Signs Temp Pulse Pulse Resp BP BP Pulse Ox 04/03/17 10:05 97.7 F 79 16 134/77 91 04/03/17 07:32 60 18 04/03/17 06:40 97.6 F 20 145/74 97 04/03/17 04:00 97.8 F 55 L 16 137/86 97 04/03/17 00:00 97.7 F 63 20 145/64 97 04/02/17 20:00 97.8 F 68 18 96 04/02/17 16:00 98.2 F 16 140/63 93 04/02/17 14:10 69 18 04/02/17 12:51 97.5 F 65 16 156/77 96 Intake and Output 04/02/17 04/03/17 04/03/17 21:59 05:59 13:59 Intake Total 930 / 930 1050 / 1050 240 / 240 Output Total 1110 / 1110 2100 / 2100 425 / 425 Balance -180 / -180 -1050 / -1050 -185 / -185 Intake: IV 50 / 50 50 / 50 Zosyn 3.375 gm In 50 / 50 50 / 50 Dextrose 5% in Water 50 ml @ 100 mls/hr IV Q6H [facility] Rx#:[id number] Oral 880 / 880 1000 / 1000 240 / 240 Output: Void Amount 1110 / 1110 2100 / 2100 425 / 425 Other: Meal Dinner Percent of Meal Consumed 100% Feeding Ability Independent # Voids 1 2 Weight 184 lb Medical - DS: Data Labs on day of discharge: Labs from last 24 hours 04/03/17 04/03/17 04:54 04:54 WBC 7.8 RBC 3.76 L Hgb 10.8 L Hct 31.8 L MCV 84.6 MCH 28.7 MCHC 33.9 RDW 14.7 H Plt Count 286 MPV 7.4 Gran % 81.8 H Lymph % (Auto) 11.1 L [place] % (Auto) 6.1 Eos % (Auto) 0.9 Baso % (Auto) 0.1 Gran # 6.4 Lymph # (Auto) 0.9 L [place] # (Auto) 0.5 Eos # (Auto) 0.1 Baso # (Auto) 0 Sodium 140 Potassium 4.6 Chloride 104 Carbon Dioxide 22 Anion Gap 14.0 BUN 20 Creatinine 1.0 GFR Calculation 66 Glucose 127 H Uric Acid 2.6 Calcium 8.9 Phosphorus 3.1 Magnesium 1.9 Total Bilirubin 0.2 Direct Bilirubin < 0.2 GGT 13 AST 9 ALT 13 Alkaline Phosphatase 56 Lactate Dehydrogenase 143 Total Protein 6.6 Albumin 3.7 Globulin 2.9 Albumin/Globulin Ratio 1.3 Triglycerides 201 H Preliminary micro results at discharge 03/31/17 15:39 Sputum Culture - Preliminary Sputum - Expectorated Presumptive haemophilis sp April 02: Barium swallow: There is a small amount of descending aspiration, without definite penetration below the vocal cords. Incomplete opening of the cricopharyngeus compatible with achalasia or stricture. Mild presbyesophagus. Small bilateral pharyngoceles. April 01: Chest x-ray: Shows small bibasilar infiltrates, with slight progression when compared to March 31, 2017. March 31: Sputum culture: Showing heavy growth gram-positive bacilli. Presumptive Haemophilus species. ID to follow. Blood cultures are negative so far. D-dimer is elevated at 0.50 next Lactic acid is normal at 1.2 Troponin T is normal at less than 0.01 agraffe chest x-ray: Shows small basilar infiltrates, more prominent on the left. EKG shows normal sinus rhythm at a rate of about 60. No acute ischemic changes are noted. Medical - DS: A/P - Patient/Caregiver Discharge Instructions Activity: increase activity as tolerated Diet: Consistent Carbohydrate Additional Instructions: 1. Pneumonia, with COPD exacerbation. -Please take Augmentin twice a day for the next 5 days, for pneumonia. Next -Take prednisone 40 mg each day, for the next 5 days. Next -For the next 5-7 days, please use duo nebs in your nebulizer, at least 3 times a day. If you have increased shortness of breath, he may also take albuterol nebulizer treatments in between. Once you are back to normal, you could discontinue the nebulizers, and resume using the Combivent inhaler, 3-4 times a day. Alternatively you could continue to use the duo nebs via nebulizer 2-3 times a day. 2. GI. The speech therapist did an evaluation, and it does show some abnormalities of swallowing as well as your upper esophagus. He may want to have your doctor refer you to a electronic organ technician to look into this further. Please use the swallowing techniques that the speech therapist taught you, to avoid aspirating oral contents into your lungs. #3. Resume home diet as tolerated Activity as tolerated Follow up with Dr. Oconnor on 04/09 at 10:00 am Return to ER for fever, chills, nausea and/or vomiting, dizziness, shortness of breath, chest pain, difficulty taking a deep breath or difficulty breathing Discharge medications: Augmentin 875 mg p.o. twice daily for 5 more days Prednisone 40 mg daily for 4 more days Duo nebs 3 times daily, for 5-7 days, then as needed Albuterol nebs every 2 hours as needed increased shortness of breath or wheezing Tylenol 650 mg every 6 hours as needed Aspirin 81 mg daily Tums 2 tabs every 4 hours as needed dysphasia Metformin 500 mg p.o. twice daily with meals Prilosec/omeprazole 40 mg p.o. twice daily Flomax 0.4 mg p.o. nightly Chaffee zinc 50 mg p.o. twice daily Saw palmetto 80 mg daily Ginseng 2 tabs daily Combivent 1 puff 4 times daily as needed. Patient should probably go on this as a scheduled dose, once he is finished with the current DuoNeb use. Prescriptions: Albuterol Sulfate [Ventolin] 2.5 mg NEB Q2HP PRN #30 PRN Reason: Shortness Of Breath Amoxicillin/Potassium Clav [Augmentin] 875 mg PO Q12H #10 tablet Ipratropium/Albuterol [Duoneb] 3 ml NEB TID #30 predniSONE [Prednisone] 40 mg PO QAMCC #5 tablet - Problem Maintenance (1) Type 2 diabetes mellitus Status: Acute (2) BPH (benign prostatic hyperplasia) Status: Acute (3) GERD (gastroesophageal reflux disease) Status: Acute (4) Pneumonia Status: Acute Qualifiers: Pneumonia type: aspiration pneumonia - Follow up Plan Follow up with: Yahaira Oconnor MD [Primary Care Provider] - 04/09/17 10:00 am (Check in the hospital clinic.) Disposition: Home, Self-Care Prognosis: Good Rehab Potential: Good Overall status at discharge: patient is progressing back to baseline Medical - DS: Qual - VTE Deep Vein Thrombosis/Pulmonary Embolism Present on Admission: No
== END 2017-04-03 13:55 | disposition home or self-care (01) | DRG 190 ==
LOC: ED 10:03 → MEDSUR 13:39
PROVIDERS: ADMIT Internal Medicine; ATTEND Internal Medicine